=== PATIENT | female | born 1970 | race Caucasian/White ===

== ENCOUNTER 2023-01-03 01:11 | Emergency (ER) | payer OTHER, MEDICARE, SELFPAY ==
[2023-01-03 01:14] VITALS: BP 137/95; PULSE 126; RESP 26; TEMP 36.4; O2SAT 94
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
--- NOTE | 2023-01-03 02:26 | PC.NURSE ---
pt eloped from the ED with IV in her arm. This RN attempted to call pt. There was no answer. This RN contacted Carlos AMEZCUA.
--- NOTE | 2023-01-03 02:31 | PC.NURSE ---
[place] PD made aware of the elopement with an IV catheter still in tact. PD was given the pts residence.
== END 2023-01-03 02:50 | disposition left against medical advice (07) ==
PROVIDERS: Emergency Provider Emergency Medicine
DX: S39.012A Strain of muscle, fascia and tendon of lower back, initial encounter (principal); V48.0XXA Car driver injured in noncollision transport accident in nontraffic accident, initial encounter; Y92.410 Unspecified street and highway as the place of occurrence of the external cause
CPT/HCPCS: 99282

== ENCOUNTER 2023-01-03 08:01 | Inpatient (IN) | payer MEDICARE, SELFPAY ==
[2023-01-03] VITALS (10 sets, daily range): BP systolic 107–138; BP diastolic 63–98; PULSE 108–122; RESP 16–18; TEMP 36–36.8; O2SAT 20–100; BMI 24.8
--- NOTE | ~2023-01-03 | CT_ITS ---
EXAMINATION: CT brain wo con INDICATION: Headache COMPARISON: 04/28/2017 TECHNIQUE: Standard unenhanced head CT. The dose-length product (DLP) was 681.00 mGy-cm. The mA was a djusted according to patient size. Iterative reconstruction technique was employed. FINDINGS: There is no intracranial hemorrhage, acute infarction, or abnormal mass lesion. The ventric les are normal. There is no abnormal mass effect or midline shift. The rolon-white matter differentiat ion is normal. The basal cisterns are patent. The orbits are normal. The paranasal sinuses, mastoids and calvarium are normal. IMPRESSION: 1. No acute intracranial abnormality. Reviewed, dictated and finalized at location B.
--- NOTE | ~2023-01-03 | CT_ITS ---
Noncontrast CT scan of the lumbar spine CLINICAL HISTORY: Trauma TECHNIQUE: Axial noncontrast imaging of the lumbar spine was performed. Sagittal and coronal reformat coty images were constructed. Dose reduction technique was used on this scan by utilizing automated ex posure control and iterative reconstruction technique. The dose-length product (DLP) was 862.45 mGy-c m. FINDINGS: There are acute, mild compression fracture deformities at superimposed regions of L1, L3, a nd L4. No subluxation evident. Intervertebral disc spaces are relatively well-preserved. At L1-L2, there is no disc bulge or herniation. There is no spinal canal stenosis, cord compression, or definite neural foraminal narrowing. At L2-L3, there is no disc bulge or herniation. No spinal canal stenosis or definite neural foraminal narrowing. At L3-L4, there is mild disc bulge and moderate facet arthropathy. No mejia central canal stenosis. N eural foramina are preserved. At L4-L5, there is disc bulge and moderate facet arthropathy. Possible minimal central canal stenosis . There is probable mild to moderate bilateral neural foraminal narrowing. L5-S1, there is no disc bulge or herniation. No spinal canal stenosis, cord compression or neural for aminal narrowing evident. Paravertebral soft tissues are unremarkable. Impression: Acute mild compression fracture deformities of L1, L3, L4, as detailed above. Mild to moderate degenerative spondylosis at L4-L5. Reviewed, dictated and finalized at [facility]. Impression: Acute mild compression fracture deformities of L1, L3, L4, as detailed above. Mild to moderate degenerative spondylosis at L4-L5.
--- NOTE | ~2023-01-03 | US_ITS ---
EXAMINATION: US renal BI DATE: 01/04/2023 08:01 INDICATION: Acute kidney injury. TECHNIQUE: Multiple ultrasound grayscale images of the kidneys were obtained. COMPARISON: CT lumbar spine 01/03/2023 FINDINGS: The right kidney measures 11.9 x 6.2 x 6.3 cm. The left kidney measures 10.2 x 6.2 x 4.7 cm. The kidn eys demonstrate normal parenchymal echogenicity. There is no hydronephrosis. The bladder is not well distended. IMPRESSION: 1. Normal kidneys. No hydronephrosis. Reviewed, dictated and finalized at location E.
[2023-01-03 09:25] LABS: Basophils Percent Auto 0.2 % (0.2-1.2); Hematocrit 35.2 % (37.0-47.0); Hemoglobin 11.8 g/dL (12.0-15.0); Immature Granulocyte Absolute 0.22 K/mm3 (0.00-0.031); Immature Granulocyte Percent A 1.3 % (0-0.5); Lymphocytes Absolute Auto 0.67 K/mm3 (0.9-3.2); Lymphocytes Percent Auto 3.9 % (18.3-44.2); Mean Corpuscular HGB Conc 33.5 g/dl (32-36); Mean Corpuscular Volume 101.4 fl (80-100); Mean Platelet Volume 9.1 fl (7.4-10.4); Monocytes Absolute Auto 1.2 K/mm3 (0.1-0.6); Monocytes Percent Auto 7.3 % (2.6-8.5); Neutrophils Absolute Auto 14.9 K/mm3 (1.3-6.7); Neutrophils Percent Auto 87.3 % (45.5-73.1); Platelet Count Result 386 k/mm3 (150-375); Red Blood Count 3.47 M/mm3 (4.2-5.4); Red Cell Distribution Width 15.1 % (11.5-14.5)
[2023-01-03 09:35] LABS: Alanine Aminotransferase 27 U/L (6-35); Albumin Level 5.1 g/dL (3.5-5.1); Alkaline Phosphatase 62 U/L (38-126); Anion Gap 17 mmol/L (8-16); Aspartate Amino Transferase 60 U/L (14-36); Bilirubin,Total 0.8 mg/dL (0.2-1.3); Blood Urea Nitrogen 24 mg/dL (7-17); Calcium 9.6 mg/dL (8.4-10.2); Carbon Dioxide 23 mmol/L (22-30); Chloride 98 mmol/L (98-107); Estimated CRCL calculation 31 ml/min; Estimated Glomerular Filt Rate 28; Glucose 121 mg/dL (65-110); Potassium 3.6 mmol/L (3.4-5.0); Sodium 138 mmol/L (137-145)
[2023-01-03] MEDS: KETOROLAC 30 MG/ML VIAL (*BKC) IV PUSH (09:47)
[2023-01-03] MEDS: SODIUM CHLORIDE 0.9% IV 1,000 ML 999 ML IV CONT ×2 (09:47→12:40)
[2023-01-03 12:24] LABS: Creatine Kinase 1042 U/L (30-135)
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
[2023-01-03] MEDS: SODIUM CHLORIDE 0.9% IV 1,000 ML 200 ML IV CONT (16:12)
[2023-01-03] MEDS: MORPHINE SULFATE (*CRX) 4 MG/ML INJ IV PUSH ×2 (18:02→23:21)
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
[2023-01-03] MEDS: HYDROcodone/acetaminophen (*CRX) 5-325 MG TABLET 1 TAB PO (22:11)
[2023-01-03] MEDS: HALOPERIDOL 5 MG TABLET PO (22:25)
[2023-01-03] MEDS: gemfibroziL 600 MG TABLET PO (22:25)
[2023-01-03] MEDS: cloNIDine HCL 0.1 MG TABLET PO (22:25)
[2023-01-04] MEDS: ZIPRASIDONE HCL 80 MG CAPSULE PO ×3 (00:08→20:40)
[2023-01-04 06:00] VITALS: BP 115/72; PULSE 101; RESP 20; TEMP 36.6; O2SAT 95
[2023-01-04] MEDS: SODIUM CHLORIDE 0.9% IV 1,000 ML 200 ML IV CONT ×2 (06:02→17:52)
[2023-01-04] MEDS: HYDROcodone/acetaminophen (*CRX) 5-325 MG TABLET 1 TAB PO ×4 (06:02→20:40)
[2023-01-04] MEDS: LEVOTHYROXINE SODIUM 25 MCG TABLET PO (06:02)
[2023-01-04 06:39] LABS: Basophils Percent Auto 0.3 % (0.2-1.2); Eosinophils Absolute Auto 0.1 K/mm3 (0-0.3); Eosinophils Percent Auto 0.5 % (0-4.4); Hematocrit 29.4 % (37.0-47.0); Hemoglobin 9.7 g/dL (12.0-15.0); Immature Granulocyte Absolute 0.07 K/mm3 (0.00-0.031); Immature Granulocyte Percent A 0.6 % (0-0.5); Lymphocytes Absolute Auto 1.46 K/mm3 (0.9-3.2); Lymphocytes Percent Auto 12.7 % (18.3-44.2); Mean Corpuscular Hemoglobin 34.3 pg (26-34); Mean Corpuscular Volume 103.9 fl (80-100); Mean Platelet Volume 9.6 fl (7.4-10.4); Monocytes Absolute Auto 1.1 K/mm3 (0.1-0.6); Monocytes Percent Auto 9.7 % (2.6-8.5); Neutrophils Absolute Auto 8.7 K/mm3 (1.3-6.7); Neutrophils Percent Auto 76.2 % (45.5-73.1); Platelet Count Result 306 k/mm3 (150-375); Red Blood Count 2.83 M/mm3 (4.2-5.4); Red Cell Distribution Width 14.8 % (11.5-14.5); White Blood Count 11.5 K/mm3 (4.5-10.0)
[2023-01-04 06:49] LABS: Alanine Aminotransferase 25 U/L (6-35); Albumin Level 3.9 g/dL (3.5-5.1); Alkaline Phosphatase 44 U/L (38-126); Anion Gap 6 mmol/L (8-16); Aspartate Amino Transferase 78 U/L (14-36); Bilirubin,Total 0.5 mg/dL (0.2-1.3); Blood Urea Nitrogen 13 mg/dL (7-17); Calcium 7.6 mg/dL (8.4-10.2); Carbon Dioxide 27 mmol/L (22-30); Chloride 103 mmol/L (98-107); Estimated CRCL calculation 81 ml/min; Estimated Glomerular Filt Rate > 60; Glucose 111 mg/dL (65-110); Magnesium 1.8 mg/dL (1.6-2.3); Potassium 3.5 mmol/L (3.4-5.0); Sodium 136 mmol/L (137-145)
[2023-01-04 07:03] LABS: Creatine Kinase 2606 U/L (30-135)
[2023-01-04 08:00] VITALS: PULSE 101; RESP 20; O2SAT 95
[2023-01-04] MEDS: gemfibroziL 600 MG TABLET PO (08:01)
[2023-01-04] MEDS: DOCUSATE SODIUM 100 MG CAPSULE PO (08:02)
[2023-01-04] MEDS: cloNIDine HCL 0.1 MG TABLET PO ×2 (08:07→17:45)
[2023-01-04] MEDS: MORPHINE SULFATE (*CRX) 4 MG/ML INJ IV PUSH ×4 (08:07→23:36)
[2023-01-04 14:00] VITALS: BP 119/62; PULSE 109; RESP 12; TEMP 37; O2SAT 95
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
[2023-01-04] MEDS: SENNOSIDES 8.6 MG TABLET 17.2 MG PO (20:40)
[2023-01-04] MEDS: MELATONIN 5 MG TABLET PO (20:40)
[2023-01-04] MEDS: HALOPERIDOL 5 MG TABLET PO (20:41)
[2023-01-04 21:47] VITALS: BP 116/67; PULSE 104; RESP 20; TEMP 36.3; O2SAT 94
[2023-01-05] MEDS: LEVOTHYROXINE SODIUM 25 MCG TABLET PO (05:56)
[2023-01-05 06:00] VITALS: BP 124/76; PULSE 98; RESP 20; TEMP 36.3; O2SAT 94
[2023-01-05 07:46] LABS: Hematocrit 28.3 % (37.0-47.0); Hemoglobin 9.2 g/dL (12.0-15.0); Immature Reticulocyte Fraction 19.7 % (3.0-15.9); Mean Corpuscular HGB Conc 32.5 g/dl (32-36); Mean Corpuscular Hemoglobin 33.9 pg (26-34); Mean Corpuscular Volume 104.4 fl (80-100); Mean Platelet Volume 9.5 fl (7.4-10.4); Platelet Count Result 268 k/mm3 (150-375); Red Blood Count 2.71 M/mm3 (4.2-5.4); Red Cell Distribution Width 14.7 % (11.5-14.5); Reticulocyte Hemoglobin Conten 34.2 pg (28.2-35.7); Reticulocyte Percent 2.02 % (0.7-4.3); Reticulocytes Absolute 0.05 M/mm3 (0.02-0.1); White Blood Count 8.4 K/mm3 (4.5-10.0)
[2023-01-05 08:00] VITALS: PULSE 102; RESP 16; O2SAT 97
[2023-01-05 08:18] LABS: Alanine Aminotransferase 24 U/L (6-35); Albumin Level 3.7 g/dL (3.5-5.1); Alkaline Phosphatase 51 U/L (38-126); Anion Gap 6 mmol/L (8-16); Aspartate Amino Transferase 50 U/L (14-36); Bilirubin,Total 0.3 mg/dL (0.2-1.3); Blood Urea Nitrogen 6 mg/dL (7-17); Calcium 7.8 mg/dL (8.4-10.2); Carbon Dioxide 27 mmol/L (22-30); Chloride 104 mmol/L (98-107); Creatine Kinase 1085 U/L (30-135); Estimated CRCL calculation 93 ml/min; Estimated Glomerular Filt Rate > 60; Glucose 118 mg/dL (65-110); Iron 39 ug/dL (37-170); Potassium 3.4 mmol/L (3.4-5.0); Sodium 137 mmol/L (137-145)
[2023-01-05 08:24] LABS: Percent Iron Saturation 14 % (20-50)
[2023-01-05 08:25] LABS: Vitamin D 25 Hydroxy 17.4 ng/mL
[2023-01-05] MEDS: cloNIDine HCL 0.1 MG TABLET PO ×2 (08:29→16:56)
[2023-01-05] MEDS: ZIPRASIDONE HCL 80 MG CAPSULE PO ×2 (08:29→20:06)
[2023-01-05 09:16] LABS: Folic Acid 14.1 ng/mL (2.76->20)
[2023-01-05 14:00] VITALS: BP 127/84; PULSE 102; RESP 16; TEMP 36.6; O2SAT 97
[2023-01-05] MEDS: HYDROcodone/acetaminophen (*CRX) 5-325 MG TABLET 1 TAB PO (15:02)
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
[2023-01-05] MEDS: POTASSIUM CHLORIDE 20 MEQ ER TABLET 40 MEQ PO ×2 (16:56→20:06)
[2023-01-05 20:00] VITALS: PULSE 102; RESP 16; O2SAT 97
[2023-01-05] MEDS: MELATONIN 5 MG TABLET PO (20:06)
[2023-01-05] MEDS: HALOPERIDOL 5 MG TABLET PO (20:07)
[2023-01-05] MEDS: MORPHINE SULFATE (*CRX) 4 MG/ML INJ IV PUSH (20:07)
[2023-01-05] MEDS: SENNOSIDES 8.6 MG TABLET 17.2 MG PO (20:12)
[2023-01-05] MEDS: SODIUM CHLORIDE 0.9% IV 1,000 ML 200 ML IV CONT (20:13)
[2023-01-05 21:30] VITALS: BP 149/85; PULSE 111; RESP 18; TEMP 35.6; O2SAT 96
[2023-01-06] MEDS: SODIUM CHLORIDE 0.9% IV 1,000 ML 200 ML IV CONT
[2023-01-06] MEDS: HYDROcodone/acetaminophen (*CRX) 5-325 MG TABLET 1 TAB PO (03:06)
[2023-01-06] MEDS: LEVOTHYROXINE SODIUM 25 MCG TABLET PO (05:54)
[2023-01-06 06:00] VITALS: BP 138/97; PULSE 102; RESP 18; TEMP 35.6; O2SAT 98
[2023-01-06 06:45] LABS: Hematocrit 29.1 % (37.0-47.0); Hemoglobin 9.5 g/dL (12.0-15.0); Mean Corpuscular HGB Conc 32.6 g/dl (32-36); Mean Corpuscular Hemoglobin 34.4 pg (26-34); Mean Corpuscular Volume 105.4 fl (80-100); Mean Platelet Volume 9.6 fl (7.4-10.4); Platelet Count Result 302 k/mm3 (150-375); Red Blood Count 2.76 M/mm3 (4.2-5.4); Red Cell Distribution Width 14.5 % (11.5-14.5); White Blood Count 9.4 K/mm3 (4.5-10.0)
[2023-01-06 06:48] LABS: Alanine Aminotransferase 25 U/L (6-35); Albumin Level 3.9 g/dL (3.5-5.1); Alkaline Phosphatase 45 U/L (38-126); Anion Gap 7 mmol/L (8-16); Aspartate Amino Transferase 47 U/L (14-36); Bilirubin,Total 0.4 mg/dL (0.2-1.3); Blood Urea Nitrogen 3 mg/dL (7-17); Calcium 8.3 mg/dL (8.4-10.2); Carbon Dioxide 28 mmol/L (22-30); Chloride 103 mmol/L (98-107); Creatine Kinase 834 U/L (30-135); Estimated CRCL calculation 109 ml/min; Estimated Glomerular Filt Rate > 60; Glucose 129 mg/dL (65-110); Potassium 3.8 mmol/L (3.4-5.0); Sodium 138 mmol/L (137-145)
[2023-01-06 08:00] VITALS: PULSE 102; RESP 18; O2SAT 98
--- NOTE | 2023-01-06 08:35 | PCOTNOTE ---
Attempted to see Patient this A.M. Patient walking around her room Independently, not wearing her LSO back brace. RN notified Patient refusing to participate in therapy services at this time. Patient verbalizing she needs to sleep and needs pain medication. Will try back at a later time.
[2023-01-06] MEDS: ZIPRASIDONE HCL 80 MG CAPSULE PO (08:45)
[2023-01-06] MEDS: cloNIDine HCL 0.1 MG TABLET PO (08:46)
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
--- NOTE | 2023-01-06 11:24 | PCCCNOTE ---
On 01/06/23, the student, [Karyn lCark ], provided care and completed [facility] documentation on this patient. I have reviewed the student's documentation and agree with the findings.
== END 2023-01-06 11:20 | disposition home or self-care (01) | DRG 565 ==
LOC: ANHED 09:43 → ANH3MEDSUR 17:15
PROVIDERS: Internal Medicine; Nurse Practitioner; Admitting Provider Family Medicine; Emergency Provider Emergency Medicine; PCP Physician Assistant; Visit Provider Hospitalist
DX: T79.6XXA Traumatic ischemia of muscle, initial encounter (principal); N17.9 Acute kidney failure, unspecified; S32.010A Wedge compression fracture of first lumbar vertebra, initial encounter for closed fracture; S32.030A Wedge compression fracture of third lumbar vertebra, initial encounter for closed fracture; S32.040A Wedge compression fracture of fourth lumbar vertebra, initial encounter for closed fracture; V49.9XXA Car occupant (driver) (passenger) injured in unspecified traffic accident, initial encounter; F20.9 Schizophrenia, unspecified; E03.9 Hypothyroidism, unspecified; E78.5 Hyperlipidemia, unspecified; I10 Essential (primary) hypertension; K59.09 Other constipation; D64.9 Anemia, unspecified
CPT/HCPCS: 36415; 70450; 72131; 76775; 80053; 82306; 82550; 82607; 82746; 83540; 83550; 83735; 84100; 84443; 85025; 85027; 85046; 96361; 96374; 97161; 97165; 99285; A9270; G0378; J1885; J2270; J7030